=== PATIENT | female | born 1980 | race Two or more races ===

== ENCOUNTER 2018-04-22 11:45 | Inpatient (IN) | payer OTHER ==
[~2018-04-22] VITALS: Ht 157.5 cm; Wt 62.1 kg
[2018-04-30] MEDS ORDERED: PRENATAL TABLE1 EAC2 PO (20:01)
== END 2018-05-03 16:52 | disposition home or self-care (01) | DRG 768 ==
LOC: LDR 04-30 19:04 → SURG-SUITE 05-01 10:57 → OB/GYN 05-12 11:45
PROVIDERS: ADMIT Obstetrics & Gynecology Maternal & Fetal Medicine
PROC: 4A1HXCZ Monitoring of Products of Conception, Cardiac Rate, External Approach (ICD-10-PCS; 2018-04-30)
PROC: 10E0XZZ Delivery of Products of Conception, External Approach (ICD-10-PCS; principal; 2018-05-01)
PROC: 0DQR0ZZ Repair Anal Sphincter, Open Approach (ICD-10-PCS; 2018-05-01)
PROC: 0UQGXZZ Repair Vagina, External Approach (ICD-10-PCS; 2018-05-01)
DX: O70.1 Second degree perineal laceration during delivery (principal); Z37.0 Single live birth; Z3A.38 38 weeks gestation of pregnancy